=== PATIENT | female | born 1950 | race Two or more races ===

== ENCOUNTER 2021-05-08 08:28 | Outpatient (CLI) | payer OTHER | END 2021-05-08 08:35 | disposition home or self-care (01) | LOC: SONOGRAMA 08:28 | PROVIDERS: ATTEND Pathology Anatomic Pathology & Clinical Pathology | DX: D34 Benign neoplasm of thyroid gland (principal); E04.8 Other specified nontoxic goiter ==

== ENCOUNTER 2022-08-13 09:34 | Outpatient (CLI) | payer OTHER | END 2022-08-13 09:38 | disposition home or self-care (01) | LOC: SONOGRAMA 09:34 | PROVIDERS: ATTEND Pathology Anatomic Pathology | DX: D34 Benign neoplasm of thyroid gland (principal); E04.9 Nontoxic goiter, unspecified; E04.2 Nontoxic multinodular goiter ==